=== PATIENT | male | born 1960 | race Caucasian/White ===

== ENCOUNTER 2021-05-31 14:09 | Inpatient (IN) | payer OTHER ==
[~2021-05-31] VITALS: Ht 177.8 cm; Wt 70.1 kg
[2021-05-31 15:17] LABS: BASOPHIL 0.3 % (0-2); EOSINOPHIL 0.2 % (0-5); HGB 10.5 g/dl (13.2-18.0); LYMPHOCYTE 9.2 % (15-48); MCH 32.9 pg (25.0-31.0); MONOCYTE 5.3 % (0-12); MPV 9.7 fL (6.0-9.5); NEUTROPHIL 84.4 % (41-80); NRBC 0.8; PLT 75 K/uL (150-400); RBC 3.19 M/uL (4.70-6.00); RDW 13.5 % (11.5-14.0); WBC 6.6 K/uL (4.0-10.5)
[2021-05-31 15:26] LABS: INR 1.24 (0.9-1.2); PROTHROMBIN TIME 14.9 SECONDS (11.8-13.4)
[2021-05-31 15:43] LABS: LACTIC ACID 1.8 mmol/L (0.4-1.9)
[2021-05-31 15:46] LABS: ALBUMIN 1.4 g/dL (3.4-5.0); BILIRUBIN - TOTAL 2.7 mg/dL (0.2-1.0); BUN/CREAT RATIO (CALC) 20.8 RATIO; CREATININE 0.96 mg/dL (0.67-1.17); GLOBULIN (CALCULATION) 5.3 g/dL; POTASSIUM 3.1 mmol/L (3.5-5.1); TOTAL PROTEIN 6.7 g/dL (6.4-8.2)
[2021-05-31 17:59] LABS: BILIRUBIN 2+ mg/dL (NEGATIVE); BLOOD 1+ Ery/uL (NEGATIVE); CLARITY CLEAR (CLEAR); COLOR YELLOW (YELLOW); GLUCOSE (U) NORMAL (NORMAL); LEUKOCYTES NEGATIVE Leu/uL (NEGATIVE); NITRITE POSITIVE (NEGATIVE); PROTEIN NEGATIVE (NEGATIVE); SPECIFIC GRAVITY <=1.005 (1.001-1.030); UROBILINOGEN >=8.0 mg/dL (0.2-1.0); pH 5.5 (5.0-9.0)
[2021-05-31 18:10] LABS: BACTERIA TRACE; URINARY WBC RARE
[2021-06-01 06:18] LABS: BASOPHIL 0.1 % (0-2); EOSINOPHIL 0.4 % (0-5); HCT 25.9 % (42.0-52.0); HGB 9.1 g/dl (13.2-18.0); LYMPHOCYTE 9.8 % (15-48); MCH 33.5 pg (25.0-31.0); MCHC 35.1 g/dL (32.0-36.0); MCV 95.2 fL (78.0-100.0); MONOCYTE 5.5 % (0-12); MPV 9.7 fL (6.0-9.5); NEUTROPHIL 83.8 % (41-80); NRBC 0.4; PLT 71 K/uL (150-400); RBC 2.72 M/uL (4.70-6.00); RDW 13.8 % (11.5-14.0); WBC 7.1 K/uL (4.0-10.5)
[2021-06-01 06:34] LABS: BUN/CREAT RATIO (CALC) 21.4 RATIO; CREATININE 1.03 mg/dL (0.67-1.17); POTASSIUM 3.4 mmol/L (3.5-5.1)
--- NOTE | 2021-06-01 11:56 | NUR ---
DR TRAORE AND LOIS, CARPET TILE LAYER, TO BEDSIDE FOR BEDSIDE PARACENTESIS. DR TRAORE EXPLAINED PROCEDURE TO PATIENT, AND OBTAINED THE CONSENT. TIME OUT PERFORMED PRE-PROCEDURE. PRE-PROCEDURE VITALS: BP 108/69, HR 104, O2 ON ROOM AIR 96% RESP 18. PROCEUDRE STARTED AT 1025, ENDED AT 1058. 4350ML OF FLUID TAKEN OFF VIA SUCTION. REPORTED TO DR. TRAORE AND DR. MADISON. POST-PROCEDURE VITALS: BP 107/67, HR 105, O2 ON ROOM AIR 95%. PATIENT TOLERATED PROCEDURE WELL.
[2021-06-01 12:53] LABS: RBC (FLUID) 2000 RBC/uL; WBC (FLUID) 351 WBC/uL
[2021-06-01 12:56] LABS: CLARITY (FLUID) SLIGHTLY HAZY; COLOR (FLUID) YELLOW
--- NOTE | 2021-06-01 16:26 | NUR ---
1230 Mr. Vizcaino lives at home with his son, Johan. He does not use any DME. Mr. Vizcaino does not have a PCP. - He reports to drink 3 beers per day.- Nursing has set up an appointment with a PCP in [place]. - Mr. Vizcaino dental issues presumed to be part of the reason for his poor appetite. - He was advised to discontinue use of etoh due his cirrohisis. - A HHR could not be made due lack of current PCP. - Mr. Vizcaino was advised to request a HHR for nursing and PT once he sees the PCP. He was educated to; AA meetings, [facility], [facility], and [facility] Care in [facility]. - A rw was ordered from [facility].
[2021-06-01] MEDS ORDERED: PEPCID AC20 MG PO (16:46)
[2021-06-01] MEDS ORDERED: MEGACE ORA6 TSP/1 OZ PO (16:46)
[2021-06-01] MEDS ORDERED: KETOROLAC TROME10 MG PO (16:46)
[2021-06-01] MEDS ORDERED: MUCINEX 600MG600 MG PO (16:46)
--- NOTE | 2021-06-01 19:00 | NUR ---
PROVIDER NOTIFED OF PATIENTS BLOOD PRESSURE OF 66/45, NEW ORDER FOR NORMAL SALINE 500ML BOLUS, AND IV ALBUMIN AT 1650, PATIENT PLACED IN TRANDELENBURG AT THAT TIME. PATIENTS B/P ELEVATED TO 80/47, NEW ORDER FOR MIDODRINE 5MG. PATIENT CONTINUES TO REMAIN LOW WITH B/P OF 70/59, AN ADDITIONAL BOLUS OF NORMAL SALINE 1000ML GIVEN AT 1811, PATIENT BP ELEVATED TO 90/61.
[2021-06-02 07:53] LABS: ALBUMIN 2.3 g/dL (3.4-5.0); BILIRUBIN - TOTAL 2.9 mg/dL (0.2-1.0); BUN/CREAT RATIO (CALC) 15.8 RATIO; CREATININE 1.46 mg/dL (0.67-1.17); POTASSIUM 3.5 mmol/L (3.5-5.1); TOTAL PROTEIN 5.3 g/dL (6.4-8.2)
[2021-06-02 18:45] LABS: BILIRUBIN 2+ mg/dL (NEGATIVE); BLOOD 3+ Ery/uL (NEGATIVE); CLARITY CLEAR (CLEAR); COLOR YELLOW (YELLOW); GLUCOSE (U) NORMAL (NORMAL); LEUKOCYTES NEGATIVE Leu/uL (NEGATIVE); NITRITE POSITIVE (NEGATIVE); PROTEIN 1+ mg/dL (NEGATIVE)
[2021-06-02 18:56] LABS: BACTERIA 3+; SQUAMOUS EPITHELIAL CELLS RARE
[2021-06-02 18:57] LABS: AMORPHOUS URATES CRYSTALS TRACE
[2021-06-03 04:52] LABS: HCT 22.6 % (42.0-52.0); HGB 7.8 g/dl (13.2-18.0); MCH 33.2 pg (25.0-31.0); MCHC 34.5 g/dL (32.0-36.0); MCV 96.2 fL (78.0-100.0); MPV 11.1 fL (6.0-9.5); RBC 2.35 M/uL (4.70-6.00); RDW 14.5 % (11.5-14.0)
[2021-06-03 05:01] LABS: WBC 22.2 K/uL (4.0-10.5)
[2021-06-03 05:13] LABS: BUN/CREAT RATIO (CALC) 14.6 RATIO; CREATININE 1.71 mg/dL (0.67-1.17); POTASSIUM 3.4 mmol/L (3.5-5.1)
[2021-06-03 10:04] LABS: RETICULOCYTE COUNT 2.1 % (1.0-2.0)
[2021-06-03 10:32] LABS: IRON 43 ug/dL (65-175); IRON % SATURATION 134.4 %SAT (20-50)
[2021-06-03 11:07] LABS: BILIRUBIN 2+ mg/dL (NEGATIVE); BLOOD 3+ Ery/uL (NEGATIVE); CLARITY CLEAR (CLEAR); COLOR YELLOW (YELLOW); GLUCOSE (U) TRACE mg/dL (NORMAL); LEUKOCYTES 1+ Leu/uL (NEGATIVE); NITRITE NEGATIVE (NEGATIVE); PROTEIN TRACE (LOW) mg/dL (NEGATIVE)
[2021-06-03 11:14] LABS: BACTERIA 1+
[2021-06-03 11:15] LABS: AMORPHOUS URATES CRYSTALS MODERATE
[2021-06-03 14:13] LABS: HCT 21.5 % (42.0-52.0); HGB 7.5 g/dL (13.2-18.0)
[2021-06-03 14:39] LABS: BUN/CREAT RATIO (CALC) 15.6 RATIO; CREATININE 1.8 mg/dL (0.67-1.17); POTASSIUM 3.2 mmol/L (3.5-5.1)
[2021-06-04 03:37] LABS: HCT 24.7 % (42.0-52.0); HGB 8.3 g/dl (13.2-18.0); MCH 30.4 pg (25.0-31.0); MCHC 33.6 g/dL (32.0-36.0); MCV 90.5 fL (78.0-100.0); RBC 2.73 M/uL (4.70-6.00); WBC 17.3 K/uL (4.0-10.5)
[2021-06-04 03:58] LABS: ALBUMIN 2.6 g/dL (3.4-5.0); BILIRUBIN - TOTAL 3.2 mg/dL (0.2-1.0); CREATININE 1.81 mg/dL (0.67-1.17); POTASSIUM 3.3 mmol/L (3.5-5.1); TOTAL PROTEIN 5.6 g/dL (6.4-8.2)
[2021-06-05 07:16] LABS: HCT 25.5 % (42.0-52.0); HGB 8.8 g/dl (13.2-18.0); MCH 30.9 pg (25.0-31.0); MCHC 34.5 g/dL (32.0-36.0); MCV 89.5 fL (78.0-100.0); MPV 11.3 fL (6.0-9.5); RBC 2.85 M/uL (4.70-6.00); RDW 19.9 % (11.5-14.0)
[2021-06-05 07:34] LABS: BUN/CREAT RATIO (CALC) 16.4 RATIO; CREATININE 1.65 mg/dL (0.67-1.17)
[2021-06-06 07:57] LABS: HCT 29.6 % (42.0-52.0); HGB 10.1 g/dl (13.2-18.0); MCHC 34.1 g/dL (32.0-36.0); MCV 90.8 fL (78.0-100.0); MPV 10.7 fL (6.0-9.5); PTT 35.2 SECONDS (24.4-34.7); RBC 3.26 M/uL (4.70-6.00); RDW 20.3 % (11.5-14.0); WBC 8.9 K/uL (4.0-10.5)
[2021-06-06 07:58] LABS: INR 1.31 (0.9-1.2); PROTHROMBIN TIME 15.6 SECONDS (11.8-13.4)
[2021-06-06 08:00] LABS: BUN/CREAT RATIO (CALC) 18.7 RATIO; CREATININE 1.66 mg/dL (0.67-1.17); POTASSIUM 4.3 mmol/L (3.5-5.1)
[2021-06-07 06:19] LABS: BASOPHIL 0.3 % (0-2); EOSINOPHIL 0.2 % (0-5); HCT 30.4 % (42.0-52.0); HGB 10.4 g/dl (13.2-18.0); LYMPHOCYTE 8.5 % (15-48); MCH 31.3 pg (25.0-31.0); MCHC 34.2 g/dL (32.0-36.0); MCV 91.6 fL (78.0-100.0); MONOCYTE 9.3 % (0-12); MPV 10.7 fL (6.0-9.5); NEUTROPHIL 77.8 % (41-80); NRBC 0; RBC 3.32 M/uL (4.70-6.00); WBC 10.2 K/uL (4.0-10.5)
[2021-06-07 06:22] LABS: BILIRUBIN - DIRECT 1.1 mg/dL (0.00-0.20); BILIRUBIN - TOTAL 2.1 mg/dL (0.2-1.0); BUN/CREAT RATIO (CALC) 20.7 RATIO; CREATININE 1.64 mg/dL (0.67-1.17); GLOBULIN (CALCULATION) 3.5 g/dL; POTASSIUM 4.6 mmol/L (3.5-5.1); TOTAL PROTEIN 5.5 g/dL (6.4-8.2)
[2021-06-07 06:58] LABS: PLT 59 K/uL (150-400)
--- NOTE | 2021-06-07 12:38 | NUR ---
07/08/21 Mr. Vizcaino ia a potential discharge for today per Dr. Bentley. Mr. Vizcaino states that he prefers to return home where his son lives. Nursing will reschedule the appointment with Marleen Starkey NP, in [place]. Patient was advised to request HH orders once he has seen the PCP.
--- NOTE | 2021-06-07 16:42 | NUR ---
06/07/21 Mr. Vizcaino has decided that he wishes to have a SNF placement. Referrals has been sent to [facility], [facility], [facility], and [facility].
[2021-06-08 06:40] LABS: BUN/CREAT RATIO (CALC) 21.3 RATIO; CREATININE 1.88 mg/dL (0.67-1.17)
[2021-06-09 06:28] LABS: BUN/CREAT RATIO (CALC) 20.9 RATIO; CREATININE 1.87 mg/dL (0.67-1.17); POTASSIUM 4.3 mmol/L (3.5-5.1)
[2021-06-09] MEDS ORDERED: LACTULOSE20 GM/30 M PO (11:01)
[2021-06-09] MEDS ORDERED: FOLIC ACID1 MG PO (11:01)
--- NOTE | 2021-06-09 15:21 | NUR ---
06/09/21 Mr. Vizcaino and his Johan were informed that a ID bed has not been secured. Mr. Vizcaino will be discharged home with his son, Johan. [facility] will continue to consider accepting patient from home. - Nursing will arrange an appointment with Marleen Starkey for PCP. Johan has been advised to request HH services from Ms. Starkey.
--- NOTE | 2021-06-10 18:27 | NUR ---
RN CALLED SON AT 10 AM 06/10/20 AND LEFT VOICEMAIL R/T TRANSPORTATION POST DISCHARGE. RN CALLED BACK AT 2 PM AND SON ANSWERED PHONE AND STATED HE WAS COMING TO GET PT AND IT WOULD TAKE AN HOUR. HEAVY MEDIA OPERATOR CALLED SON AT 5 PM AND HE STATED "MY SON HAS TO GET HIS CHORES DONE AND I'LL BE THERE". SON ARRIVE IN ROOM AT 6 PM AND DISCUSSES WITH RN THAT HE IS NOT COMFORTABLE TAKING THE PT HOME AND DID NOT FEEL THAT HE COULD TAKE CARE OF HIM BECAUSE HE LIVES HOME ALONE. RN SPOKE WITH SENIOR ENERGY MARKET COORDINATOR AND MD AND AGREED TO KEEP PATIENT AT THIS TIME TO FIND PLACEMENT. DISCHARGE PLANNING TO BE NOTIFIED
--- NOTE | 2021-06-12 13:58 | NUR ---
06/12/21 Both [facility] and [facility] have accepted Mr. Vizcaino for admission on 06/13/21. He chose [facility]. Patient meets criteria for EMS per nursing. - Johan Vizcaino, son, was informed. - Please call report to: [phone] and fax DS to: [phone]. Report given to Abbi Adler MS RN.
[2021-06-13 07:27] LABS: BASOPHIL 0.1 % (0-2); EOSINOPHIL 0 % (0-5); HCT 27.3 % (42.0-52.0); LYMPHOCYTE 5.4 % (15-48); MCH 30.8 pg (25.0-31.0); MCV 93.5 fL (78.0-100.0); MONOCYTE 4.4 % (0-12); MPV 9.8 fL (6.0-9.5); NRBC 0; PLT 114 K/uL (150-400); RBC 2.92 M/uL (4.70-6.00); RDW 24.2 % (11.5-14.0); WBC 26.8 K/uL (4.0-10.5)
[2021-06-13 07:51] LABS: NEUTROPHIL 89.3 % (41-80)
[2021-06-13 07:52] LABS: ALBUMIN 2.1 g/dL (3.4-5.0); BILIRUBIN - DIRECT 0.9 mg/dL (0.00-0.20); BILIRUBIN - TOTAL 2.2 mg/dL (0.2-1.0); BUN/CREAT RATIO (CALC) 22.9 RATIO; CREATININE 1.53 mg/dL (0.67-1.17); GLOBULIN (CALCULATION) 4.1 g/dL; POTASSIUM 3.7 mmol/L (3.5-5.1); TOTAL PROTEIN 6.2 g/dL (6.4-8.2)
--- NOTE | 2021-06-13 16:34 | NUR ---
06/13/21 Mr. Vizcaino's condition has declined. [facility] and [facility] were notified that patient will not be discharged today. - Art requested written scripts for narcotics when patient is discharged.
[2021-06-14 06:08] LABS: BILIRUBIN NEGATIVE (NEGATIVE); BLOOD TRACE-INTACT Ery/uL (NEGATIVE); CLARITY CLEAR (CLEAR); COLOR YELLOW (YELLOW); GLUCOSE (U) NORMAL (NORMAL); LEUKOCYTES NEGATIVE Leu/uL (NEGATIVE); NITRITE NEGATIVE (NEGATIVE); PROTEIN NEGATIVE (NEGATIVE); UROBILINOGEN 0.2 mg/dL (0.2-1.0); pH 5.5 (5.0-9.0)
[2021-06-14 06:22] LABS: SQUAMOUS EPITHELIAL CELLS RARE; URINARY RBC RARE
[2021-06-14 12:22] LABS: BASOPHIL 0.1 % (0-2); EOSINOPHIL 0.3 % (0-5); HCT 28.4 % (42.0-52.0); HGB 9.3 g/dl (13.2-18.0); LYMPHOCYTE 10.7 % (15-48); MCH 31.2 pg (25.0-31.0); MCHC 32.7 g/dL (32.0-36.0); MCV 95.3 fL (78.0-100.0); MPV 9.8 fL (6.0-9.5); NRBC 0; PLT 115 K/uL (150-400); RBC 2.98 M/uL (4.70-6.00); RDW 24.5 % (11.5-14.0); WBC 14.1 K/uL (4.0-10.5)
[2021-06-14 12:51] LABS: CREATININE 1.35 mg/dL (0.67-1.17); POTASSIUM 3.6 mmol/L (3.5-5.1)
--- NOTE | 2021-06-14 14:08 | NUR ---
06/14/21 An update was provided to [facility] and Vivi.
[2021-06-15 06:42] LABS: HCT 26.2 % (42.0-52.0); HGB 8.5 g/dl (13.2-18.0); MCH 31.1 pg (25.0-31.0); MCHC 32.4 g/dL (32.0-36.0); MPV 9.9 fL (6.0-9.5); RBC 2.73 M/uL (4.70-6.00); RDW 24.4 % (11.5-14.0); WBC 11.2 K/uL (4.0-10.5)
[2021-06-15 07:05] LABS: BUN/CREAT RATIO (CALC) 23.3 RATIO; CREATININE 1.29 mg/dL (0.67-1.17); POTASSIUM 3.3 mmol/L (3.5-5.1)
--- NOTE | 2021-06-15 15:25 | NUR ---
06/15/[address] Delgado, a peg tube is contraindicated. Options of getting a NG tube placed and being considered for a LTACH vs going to [facility] without a NG were discussed. Mr. Vizcaino prefers to go to [place]. - Jonathan Corral reports to be able to accept patient at [facility] on 06/16/21. Report given to MARIBETH Panchal.
[2021-06-16 06:12] LABS: HCT 26.8 % (42.0-52.0); HGB 8.7 g/dl (13.2-18.0); MCH 31.6 pg (25.0-31.0); MCHC 32.5 g/dL (32.0-36.0); MCV 97.5 fL (78.0-100.0); MPV 10.3 fL (6.0-9.5); RBC 2.75 M/uL (4.70-6.00); RDW 24.9 % (11.5-14.0); WBC 10.4 K/uL (4.0-10.5)
[2021-06-16 06:49] LABS: ALBUMIN 2.1 g/dL (3.4-5.0); BILIRUBIN - TOTAL 1.5 mg/dL (0.2-1.0); CREATININE 1.25 mg/dL (0.67-1.17); GLOBULIN (CALCULATION) 4.1 g/dL; MAGNESIUM 2.2 mg/dL (1.8-2.4); POTASSIUM 4.1 mmol/L (3.5-5.1); TOTAL PROTEIN 6.2 g/dL (6.4-8.2)
[2021-06-16] MEDS ORDERED: DUONEB 2.5-0.5M1 AMP NEB (09:03)
[2021-06-16] MEDS ORDERED: MIRALAX17 GM PO (09:03)
[2021-06-16] MEDS ORDERED: FUROSEMIDE 20MG20 MG PO (09:03)
[2021-06-16] MEDS ORDERED: ALDACTONE25 MG PO (09:03)
[2021-06-16] MEDS ORDERED: OXYCONTIN 10MG10 MG PO (09:10)
[2021-06-16] MEDS ORDERED: KLOR-CON M 1010 MEQ PO (09:25)
--- NOTE | 2021-06-16 11:46 | NUR ---
06/16/21 [facility] has accepted patient for admission today. Please fax DS to: [phone] and call report to: [phone]. Report given to MS CLINT Rodriguez
--- NOTE | 2021-06-16 15:03 | NUR ---
1335 REPORT WAS CALLED TO [facility] TO CLINT YEPEZ. CONDITION WAS STABLE AT THIS TIME. AWAITING THE EMS TO ARRIVED FOR TRANSPORT OVER TO THE RESIDENTIAL. 1428 REPORT WAS GIVEN TO THE EMS STAFF AND PATIENT WAS TRANSPORTED TO THE RESIDENTIAL VIA STRETCHER WITH STAFF.
== END 2021-06-16 14:23 | DRG 432 ==
LOC: FER 14:09 → FTCU 18:00 → FMS 18:00 → FER 19:45 → FMS 19:45 → FTCU 06-01 12:11 → FMS 06-04 20:43
PROVIDERS: Emergency Medicine; Family Medicine; Internal Medicine Cardiovascular Disease; Nurse Practitioner Acute Care; ADMIT Internal Medicine
PROC: 0W9G3ZZ Drainage of Peritoneal Cavity, Percutaneous Approach (ICD-10-PCS; principal; 2021-06-01)
PROC: 30233N1 Transfusion of Nonautologous Red Blood Cells into Peripheral Vein, Percutaneous Approach (ICD-10-PCS; 2021-06-03)
PROC: 0W9G3ZZ Drainage of Peritoneal Cavity, Percutaneous Approach (ICD-10-PCS; 2021-06-06)
DX: K70.31 Alcoholic cirrhosis of liver with ascites (principal); E43 Unspecified severe protein-calorie malnutrition; J69.0 Pneumonitis due to inhalation of food and vomit; I21.A1 Myocardial infarction type 2; E87.1 Hypo-osmolality and hyponatremia; Z68.1 Body mass index [BMI] 19.9 or less, adult; N17.9 Acute kidney failure, unspecified; K56.7 Ileus, unspecified; J98.11 Atelectasis; E87.2 Acidosis; D62 Acute posthemorrhagic anemia; J44.1 Chronic obstructive pulmonary disease with (acute) exacerbation; R65.10 Systemic inflammatory response syndrome (SIRS) of non-infectious origin without acute organ dysfunction; K92.2 Gastrointestinal hemorrhage, unspecified; N39.0 Urinary tract infection, site not specified; Z20.822 Contact with and (suspected) exposure to COVID-19; F10.20 Alcohol dependence, uncomplicated; E87.6 Hypokalemia; D69.6 Thrombocytopenia, unspecified; M25.50 Pain in unspecified joint; K72.90 Hepatic failure, unspecified without coma; I10 Essential (primary) hypertension; I95.9 Hypotension, unspecified; I48.0 Paroxysmal atrial fibrillation; K21.9 Gastro-esophageal reflux disease without esophagitis; Z88.0 Allergy status to penicillin; Z87.891 Personal history of nicotine dependence
CPT/HCPCS: 36415; 36430; 71045; 71046; 74018; 74019; 74022; 80048; 80053; 80076; 80162; 81001; 82009; 82140; 82150; 82550; 82607; 82728; 82945; 83540; 83550; 83605; 83615; 83735; 84145; 84157; 84439; 84443; 84484; 85014; 85018; 85025; 85610; 85730; 86850; 86900; 86901; 86922; 87040; 87070; 87088; 87205; 88305; 89051; 92526; 93005; 94010; 94640; 94667; 94668; 97110; 97116; 97162; 97166; 97530-GP; 97535; G0378; J0282; J0295; J1160; J1885; J1956; J2405; J3360; J3411; J3475; J7030; J7040; J7060; P9016; P9046; P9047; Q9967; U0002